=== PATIENT | female | born 1945 | race Caucasian/White ===

== ENCOUNTER 2019-12-15 14:58 | Emergency (ER) | payer OTHER, SELFPAY ==
[2019-12-15 14:59] VITALS: BP 186/92; PULSE 62; RESP 16; O2SAT 97; BMI 25.6
--- NOTE | 2019-12-15 15:01 | ED_ITS ---
Entered by Anna Andrew, acting as scribe for Sona Melchor DO HPI - Altered Mental Status General: Chief Complaint: Altered Mental Status Stated Complaint: AMS Time Seen by Provider: 12/15/19 15:00 Source: patient and EMS Mode of arrival: EMS Limitations: no limitations History of Present Illness: HPI narrative: 74 yo Female presents to ED with complaint of altered mental status. Per EMS, social work assistant went to see the patient at home today and felt that the patient had some altered mental status. Per EMS, there are about 30 hydrocodone pills that are unaccounted for. Per EMS, patient is also using Fentanyl patches. EMS reports that patient is on hospice but is unaware what the patient's hospice diagnosis is. Pt states she has no complaints at this time. MD complaint: altered mental status Onset (ago): unknown Associated symptoms: Reports no associated symptoms; Deny depression, homicidal ideation or suicidal ideation Review of Systems Const: Denies: fever, chills, change in appetite or malaise Eyes: Denies: change in vision, blurry vision, eye discharge or eye redness ENMT: Denies: throat pain, uvular edema, painful swallowing, mouth pain, dental pain, nasal congestion or facial/sinus pain Card: Denies: chest pain, irregular heart rhythm, swelling of feet/ankles, shortness of breath on exertion, shortness of breath when lying down or leg pain with exertion Resp: Denies: shortness of breath, productive cough, wheezing or coughing up blood GI: Denies: abdominal pain, nausea, vomiting, diarrhea, constipation or fecal incontinence : Denies: flank pain, difficulty urinating, painful urination, urinary frequency, urinary urgency or urinary hesitancy Musc: Denies: neck pain, back pain, extremity pain or extremity swelling Skin/Breast: Denies: rash, itching, redness, yellow skin or dry skin Neuro: Denies: headache, numbness in extremities, weakness in extremities, changes in sensation, lack of coordination or difficulty walking Psych: Denies: anxiety, depression, mood swings, panic attacks, sleeping less, suicidal ideation or homicidal ideation Endo: Denies: excessive urination, excessive thirst or tired all the time Checo/Lymph: Denies: easy bruising, petechiae or enlarged lymph nodes All/Imm: Denies: hives, throat swelling, facial swelling, acute wheezing or seasonal allergies PFSH ED PFSH: Statuses (acute, chronic, etc) shown below reflect problem list status as previously entered and may not be historically accurate Medical History (Updated 12/15/19 @ 18:11 by Sona Melchor DO) Angina pectoris (Acute) CHF (congestive heart failure) (Acute) COPD (chronic obstructive pulmonary disease) (Acute) Dementia (Acute) Diabetes (Acute) HTN (hypertension) (Acute) Hypoglycemia (Acute) Hyponatremia (Acute) UTI (urinary tract infection) (Acute) Social History Smoking and tobacco status: former smoker Physical Exam Const: COMMON NORMALS: no apparent distress, oriented x3, no limitations, healthy appearing, alert and well nourished GENERAL APPEARANCE: cooperative, comfortable, well kempt and well developed ORIENTATION/CONSCIOUSNESS: Yes awake, Yes oriented to person, Yes oriented to place and Yes oriented to time HENMT: COMMON NORMALS: normocephalic, head/scalp atraumatic, hearing grossly normal bilaterally, external ears normal, EAC's normal, TM's normal bilaterally, external nose normal, nasal mucous membranes and turbinates normal, moist oral mucous membranes, oropharynx normal, dentition normal and gingiva normal HEAD & SCALP: normal to inspection, normocephalic and atraumatic FACE & SINUS: normal facial exam NOSE: external nose normal and nasal mucous membranes and turbinates normal EXTERNAL EAR: Yes external ears normal EXTERNAL AUDITORY CANAL: EAC's normal TYMPANIC MEMBRANE: TM's normal bilaterally MOUTH: oral and palatal mucosa normal, lip normal and tongue normal THROAT: no uvular edema Eye: COMMON NORMALS: PERRL, EOMs intact bilaterally, conjunctivae normal, no scleral icterus and normal visual prater by confrontation GENERAL EYE: normal appearance of both eyes and normal light reflex VISUAL ACUITY: Yes acuity normal ALIGNMENT: Yes alignment normal PERIORBITAL: periorbital findings normal EYELID: eyelids normal CONJUNCTIVA: Yes conjunctivae normal SCLERA: sclerae normal PUPIL: Yes PERRL and Yes accommodation reflex normal DIRECT OPHTHALMOSCOPY: Yes normal light reflex Neck/C-Spine: COMMON NORMALS: full ROM, no lymphadenopathy, supple, no meningeal signs and no JVD GENERAL: Yes normal visual inspection CAROTIDS: Yes normal carotid upstroke CERVICAL SPINE: Yes cervical ROM normal Lymph: LYMPHATIC: no lymphadenopathy noted Chest: COMMONS NORMALS: inspection of chest normal CHEST: Yes symmetrical chest wall rise Resp: COMMON NORMALS: normal respiratory effort, no retractions, no use of accessory muscles and clear to auscultation bilaterally EFFORT & INSPECTION: Yes able to speak in complete sentences and Yes symmetric chest movement AUSCULTATION: clear to auscultation bilaterally Cardio: COMMON NORMALS: no JVD, regular rate, regular rhythm, S1 normal heart sound, S2 normal heart sound, no murmurs and peripheral pulses 2+ throughout RATE: regular rate RHYTHM: regular rhythm HEART SOUNDS: S1 normal and S2 normal PERIPHERAL PULSES: pulses 2+ throughout GI: COMMON NORMALS: normal to inspection, nondistended, normoactive bowel sounds and non-tender : COMMON NORMALS: Yes no CVA tenderness BLADDER/KIDNEY EXAM: Yes no CVA tenderness Back/Pelvis: COMMON NORMALS: no CVA tenderness, thoracic and lumbar spine normal to inspection, no thoracic nor lumbar tenderness and thoraco-lumbar ROM normal Extremity: COMMON NORMALS: normal to inspection, full ROM, normal capillary refill, no calf tenderness and no pedal edema Neuro: COMMON NORMALS: oriented x3, CN's II-XII intact bilaterally, moves all extremities, no focal motor deficits, no sensory deficits noted and gait normal SENSORIUM/ORIENTATION: Yes alert, Yes oriented to person, Yes oriented to place and Yes oriented to time MENINGEAL SIGNS: Yes no meningeal signs SPEECH: speech normal GAIT: Yes normal gait MOTOR EXAM: strength 5/5 throughout, no pronator drift and no tremor noted Psych: COMMON NORMALS: mental status grossly normal, thought process normal, cooperative, affect normal, speech normal and activity/motor behavior normal APPEARANCE: Yes well kempt SPEECH: Yes normal speech THOUGHT PROCESS: normal thought process THOUGHT CONTENT: Yes normal thought content INSIGHT: insight good Skin: COMMON NORMALS: no rashes or lesions noted, no wounds, skin turgor normal and no jaundice GENERAL SKIN EXAM: no rashes or lesions noted and turgor normal Course ED course: Patient resting comfortably in the ER without complaint at baseline. Answers all questions appropriately. No evidence of electrolyte abnormality, uti or anemia, no metabolic condition or infection identified. Will dc back home. Vital Signs: Vital signs: Vital Signs Pulse Rate 62 12/15/19 14:59 Respiratory Rate 16 12/15/19 14:59 Blood Pressure 186/92 12/15/19 14:59 Pulse Oximetry 97 02/07/20 14:59 MDM - Altered Mental Status Lab Data: Labs: Lab Results 12/15/19 12/15/19 12/15/19 Range/Units 14:30 14:30 14:30 WBC 9.4 (4.0-10.0) 10^3/ uL RBC 5.22 (4.1-5.3) 10^6/u L Hgb 14.7 (11.5-15.3) g/dL Hct 44.3 (37.0-47.0) % MCV 84.9 (81-99) fL MCH 28.2 (28.0-34.0) pg MCHC 33.2 (30.0-36.0) g/dL RDW 13.7 (12.1-15.1) % Plt Count 328 (130-400) 10^3/c mm MPV 10.4 (7.4-10.4) fL Neut % (Auto) 55.1 % Lymph % (Auto) 36.5 % Bullitt % (Auto) 5.6 % Eos % (Auto) 1.8 % Baso % (Auto) 0.5 % Neut # (Auto) 5.2 (1.8-7.7) 10^3/u L Lymph # (Auto) 3.4 (0.8-4.8) 10^3/u L Bullitt # (Auto) 0.5 (0.2-0.9) 10^3/u L Eos # (Auto) 0.2 (0.0-0.8) 10^3/u L Baso # (Auto) 0.1 (0.0-0.1) 10^3/u L Nucleated RBC % (a uto) 0 % Nucleated RBCs # 0.0 /100WBC PT 13.20 (10.5-13.3) SECO NDS INR 0.97 (0.8-1.2) Sodium 138 (136-145) mmol/L Potassium 3.6 (3.5-5.1) mmol/L Chloride 97 L (98-107) mmol/L Carbon Dioxide 30 H (22-29) mmol/L Anion Gap 14.6 (5-19) BUN 9 (8-23) mg/dL Creatinine 0.9 (0.5-0.9) mg/dL Glucose 99 (65-115) mg/dL Calcium 10.0 (8.5-10.5) mg/dL Total Bilirubin 0.6 (0.15-1.2) mg/dL AST 18 (0-32) U/L ALT < 5 (0-33) U/L Alkaline Phosphata se 77 (35-105) IU/L Total Protein 7.9 (6.6-8.7) g/dL Albumin 4.2 (3.5-5.2) g/dL Globulin 3.7 (1.3-4.6) g/dL Urine Color (Yellow) Urine Appearance (CLEAR) Urine pH (5-7) Ur Specific Gravit y (1.005-1.030) Urine Protein (Negative) Urine Glucose (UA) (Normal) Urine Ketones (Negative) Urine Occult Blood (Negative) Urine Nitrate (Negative) Urine Bilirubin (NEGATIVE) Urine Urobilinogen (Negative) mg/dL Ur Leukocyte Keeley ase (Negative) Acetaminophen < 5.0 L (10-30) ug/mL Ethyl Alcohol < 10 (0-10) mg/dL 12/15/19 Range/Units 17:33 WBC (4.0-10.0) 10^3/ uL RBC (4.1-5.3) 10^6/u L Hgb (11.5-15.3) g/dL Hct (37.0-47.0) % MCV (81-99) fL MCH (28.0-34.0) pg MCHC (30.0-36.0) g/dL RDW (12.1-15.1) % Plt Count (130-400) 10^3/c mm MPV (7.4-10.4) fL Neut % (Auto) % Lymph % (Auto) % Bullitt % (Auto) % Eos % (Auto) % Baso % (Auto) % Neut # (Auto) (1.8-7.7) 10^3/u L Lymph # (Auto) (0.8-4.8) 10^3/u L Bullitt # (Auto) (0.2-0.9) 10^3/u L Eos # (Auto) (0.0-0.8) 10^3/u L Baso # (Auto) (0.0-0.1) 10^3/u L Nucleated RBC % (a uto) % Nucleated RBCs # /100WBC PT (10.5-13.3) SECO NDS INR (0.8-1.2) Sodium (136-145) mmol/L Potassium (3.5-5.1) mmol/L Chloride (98-107) mmol/L Carbon Dioxide (22-29) mmol/L Anion Gap (5-19) BUN (8-23) mg/dL Creatinine (0.5-0.9) mg/dL Glucose (65-115) mg/dL Calcium (8.5-10.5) mg/dL Total Bilirubin (0.15-1.2) mg/dL AST (0-32) U/L ALT (0-33) U/L Alkaline Phosphata se (35-105) IU/L Total Protein (6.6-8.7) g/dL Albumin (3.5-5.2) g/dL Globulin (1.3-4.6) g/dL Urine Color Yellow (Yellow) Urine Appearance Clear (CLEAR) Urine pH 5 (5-7) Ur Specific Gravit y 1.020 (1.005-1.030) Urine Protein Neg (Negative) Urine Glucose (UA) Norm (Normal) Urine Ketones Negative (Negative) Urine Occult Blood Neg (Negative) Urine Nitrate Negative (Negative) Urine Bilirubin Neg (NEGATIVE) Urine Urobilinogen Norm (Negative) mg/dL Ur Leukocyte Keeley ase Negative (Negative) Acetaminophen (10-30) ug/mL Ethyl Alcohol (0-10) mg/dL Discharge Plan Discharge Patient Disposition: Home, Self-Care Clinical Impression: Normal exam Dementia Qualifiers: Dementia type: unspecified type Dementia behavioral disturbance: without behavioral disturbance Qualified Code(s): F03.90 - Unspecified dementia without behavioral disturbance Condition: Stable Discharge Orders: Discharge Order (Routine); Ordered 12/15/19 Ordered By: Sona Melchor Referrals: Sharan Diaz MD [Primary Care Provider] - Discharge Diet: Usual diet Discharge Activity: Resume usual activity Patient Instructions: Fall Prevention for Older Adults (ED) Coding Level of Care Code ED Staff Field Engineer for [facility] Fwd Exam Problem Focused The documentation recorded by the Lorrie barreto Carmen, accurately reflects the service I personally performed and the decisions made by Ruiz padilla Amanda, DO Feb 07, 2020 14:58
--- NOTE | 2019-12-15 15:07 | ECG_ITS ---
Measurements Intervals [place] Rate: 58 P: 85 WV: 187 QRS: 56 QRSD: 83 T: 91 QT: 426 QTc: 419 SINUS BRADYCARDIA WITH OCCASIONAL SUPRAVENTRICULAR PREMATURE COMPLEXES NONSPECIFIC T-WAVE ABNORMALITY Compared to ECG 08/20/2018 15:10:17 T-wave abnormality now present Electronically Signed On 12-15-2019 22:16:56 DIRECTOR IMMUNOLOGY by Mateo Prescott M.D. [email or web address]
[2019-12-15 15:23] LABS: Basophils # 0.1 10^3/uL (0.0-0.1); Basophils % 0.5 %; Eosinophils # 0.2 10^3/uL (0.0-0.8); Eosinophils % 1.8 %; Hematocrit 44.3 % (37.0-47.0); Hemoglobin 14.7 g/dL (11.5-15.3); Lymphocytes # 3.4 10^3/uL (0.8-4.8); Lymphocytes % 36.5 %; Mean Corpuscular HGB Conc 33.2 g/dL (30.0-36.0); Mean Corpuscular Hemoglobin 28.2 pg (28.0-34.0); Mean Corpuscular Volume 84.9 fL (81-99); Mean Platelet Volume 10.4 fL (7.4-10.4); Monocytes # 0.5 10^3/uL (0.2-0.9); Monocytes % 5.6 %; Neutrophils # 5.2 10^3/uL (1.8-7.7); Neutrophils % 55.1 %; Nucleated Red Blood Cells % 0 %; Platelet Count 328 10^3/cmm (130-400); Red Blood Count 5.22 10^6/uL (4.1-5.3); Red Cell Distribution Width 13.7 % (12.1-15.1); White Blood Count 9.4 10^3/uL (4.0-10.0)
[2019-12-15 15:35] LABS: INR 0.97 (0.8-1.2)
[2019-12-15 15:39] LABS: Alanine Aminotransferase < 5 U/L (0-33); Albumin Level 4.2 g/dL (3.5-5.2); Alkaline Phosphatase 77 IU/L (35-105); Anion Gap 14.6 (5-19); Aspartate Amino Transferase 18 U/L (0-32); Blood Urea Nitrogen 9 mg/dL (8-23); Carbon Dioxide 30 mmol/L (22-29); Chloride 97 mmol/L (98-107); Globulin 3.7 g/dL (1.3-4.6); Glucose 99 mg/dL (65-115); Potassium 3.6 mmol/L (3.5-5.1); Sodium 138 mmol/L (136-145); Total Bilirubin 0.6 mg/dL (0.15-1.2); Total Protein 7.9 g/dL (6.6-8.7)
[2019-12-15 15:51] LABS: Acetaminophen < 5.0 ug/mL (10-30); Alcohol Level < 10 mg/dL (0-10)
[2019-12-15 17:57] LABS: Add Urine Microscopic? NO
[2019-12-15 18:05] LABS: Bilirubin Urine Neg (NEGATIVE); Blood Urine Neg (Negative); Glucose Urine UA Norm (Normal); Ketones Urine Negative (Negative); Leukocyte Esterase Urine Negative (Negative); Nitrate Urine Negative (Negative); Protein Urine Neg (Negative); Urine Appearance Clear (CLEAR); Urine Color Yellow (Yellow); Urobilinogen Urine Norm (Negative); pH Urine 5 (5-7)
[2019-12-15 18:25] LABS: Amphetamines Screen Urine Negative (Negative); Barbiturates Screen Urine Negative (Negative); Benzodiazepines Screen Urine Negative (Negative); Cocaine Screen Urine Negative (Negative); Opiate Screen Urine Negative (Negative); PCP Screen Urine Negative (Negative); THC Screen Urine Negative (Negative)
[2019-12-15 18:31] VITALS: BP 151/88; PULSE 68; RESP 18; O2SAT 97
== END 2019-12-15 18:37 | disposition home or self-care (01) ==
PROVIDERS: Emergency Provider Emergency Medicine; Family Provider Family Medicine; PCP Family Medicine
DX: F03.90 Unspecified dementia, unspecified severity, without behavioral disturbance, psychotic disturbance, mood disturbance, and anxiety (principal); I11.0 Hypertensive heart disease with heart failure; I50.9 Heart failure, unspecified; J44.9 Chronic obstructive pulmonary disease, unspecified; E11.9 Type 2 diabetes mellitus without complications; Z87.891 Personal history of nicotine dependence
CPT/HCPCS: 80053; 80307; 81003; 85025; 85610; 93005; 99283; 99284

== ENCOUNTER 2020-01-05 13:19 | Emergency (ER) | payer MEDICARE, OTHER, SELFPAY ==
[2020-01-05] VITALS (10 sets, daily range): BP systolic 106–184; BP diastolic 68–93; PULSE 64–73; RESP 16–18; TEMP 36.6–36.7; O2SAT 92–96; BMI 22.4
--- NOTE | 2020-01-05 13:33 | ED_ITS ---
Entered by Sadaf Barron, acting as scribe for Mitchell Avila DO HPI - Weakness General: Chief complaint: General Medical Stated complaint: GENERALIZED WEAKNESS Time Seen by Provider: 01/05/20 13:41 Source: patient, family and EMS Mode of arrival: EMS Limitations: no limitations History of Present Illness: HPI Narrative: 74 yo female presents with ge neralized weakness. per sister the pt was locked in a house with random people and the police had to break in to get to the pt. per sister the pt has history of cancer and has not been eating or drinking. when sister got in the house there was no food, states she is unable to care for the pt and would like retirement placement. denies any other symptoms at this time. Patient is not oriented to time or place she does recognize her sister at the bedside otherwise she is unable to give significant history. History reviewed from old records she is previously had several times where she came in excessively weak her unable to care for self and and retirement placement recommended. She was diagnosed with a spiculated lung mass in the right lung several years ago but has not sought any treatment and is currently on hospice MD Complaint: generalized weakness and difficulty walking Onset (ago): month(s) Duration: progressively worsening Location: generalized Migration: none Severity: moderate Relieving factors: none Exacerbating factors: none Associated symptoms: Reports no associated symptoms; Denies chest pain, chills, dark stools, dysuria, fever(s), nausea or vomiting Review of Systems Const: Denies: fever, chills, body aches, change in appetite, fatigue or malaise ENMT: Denies: throat pain, ear pain, nasal discharge or nasal congestion Card: Denies: chest pain, edema, shortness of breath on exertion or shortness of breath when lying down Resp: Denies: shortness of breath, productive cough or non-productive cough GI: Denies: abdominal pain, nausea, vomiting, vomiting blood, coffee grounds in vomit, diarrhea, constipation, bloating, blood in stool or black tarry stool : Denies: flank pain, difficulty urinating, painful urination, urinary frequency or urinary urgency Skin/Breast: Denies: rash or itching All/Imm: Denies: acute wheezing PFSH ED PFSH: Medical History Angina pectoris CHF (congestive heart failure) COPD (chronic obstructive pulmonary disease) Dementia Diabetes HTN (hypertension) Hypoglycemia Hyponatremia UTI (urinary tract infection) Social History Smoking and tobacco status: current every day smoker Physical Exam Const: COMMON NORMALS: average body habitus GENERAL APPEARANCE: cooperative, comfortable, well kempt and well developed NUTRITIONAL APPEARANCE: obese ORIENTATION/CONSCIOUSNESS: Yes awake and Yes oriented to person HENMT: COMMON NORMALS: normocephalic, head/scalp atraumatic, EAC's normal, TM's normal bilaterally, external nose normal, moist oral mucous membranes and oropharynx normal HEAD & SCALP: normocephalic and atraumatic NOSE: external nose normal EXTERNAL AUDITORY CANAL: EAC's normal TYMPANIC MEMBRANE: TM's normal bilaterally MOUTH: oral and palatal mucosa normal, lip normal and tongue normal THROAT: posterior oropharynx normal and tonsils normal Eye: COMMON NORMALS: PERRL, EOMs intact bilaterally, conjunctivae normal and no scleral icterus CONJUNCTIVA: Yes conjunctivae normal PUPIL: Yes PERRL Neck/C-Spine: COMMON NORMALS: full ROM, no lymphadenopathy, supple, no meningeal signs and thyroid normal THYROID: thyroid normal and asymmetrical Lymph: LYMPHATIC: no lymphadenopathy noted Resp: COMMON NORMALS: normal respiratory effort, no retractions, no use of accessory muscles and clear to auscultation bilaterally AUSCULTATION: clear to auscultation bilaterally Cardio: COMMON NORMALS: regular rate and regular rhythm RATE: regular rate RHYTHM: regular rhythm HEART SOUNDS: no murmurs GI: COMMON NORMALS: normal to inspection, nondistended, normoactive bowel sounds, soft to palpation and no hepatosplenomegaly PALPATION: Yes soft and Yes no hepatosplenomegaly : COMMON NORMALS: Yes no CVA tenderness BLADDER/KIDNEY EXAM: Yes no CVA tenderness Back/Pelvis: COMMON NORMALS: no CVA tenderness LUMBAR SPINE/LOWER BACK: Yes normal to inspection Neuro: SENSORIUM/ORIENTATION: Yes oriented to person MENINGEAL SIGNS: Yes no meningeal signs Psych: APPEARANCE: Yes well kempt Skin: COMMON NORMALS: no rashes or lesions noted and skin turgor normal GENERAL SKIN EXAM: no rashes or lesions noted and turgor normal Course ED course: She has no ongoing medical issues at this point I would not recommend necessarily hospitalizing her. She certainly does have generalized weakness and some dementia and probably worsened by her underlying diagnosis of cancer which has not been treated. I concur with the sister that she would be better served at a retirement. Reviewed old records, has had some the same difficulties in the past with the patient in terms of poor memory not being able to manage fully manage herself. Unfortunately the patient has not of her right mind at this point to sign for power of insurance attorney to her sister who is present. She is not really aware of time or place although she does understand that it is her sister with her here today. Patient is agreeable to going to the retirement we will get her placed in the retirement encouraged the family member to pursue power of insurance attorney as a separate issue. Vital Signs: Vital signs: Vital Signs Temperature 97.8 F 01/05/20 21:19 Pulse Rate 72 01/05/20 21:19 Respiratory Rate 18 01/05/20 21:19 Blood Pressure 106/68 01/05/20 21:19 Pulse Oximetry 94 01/05/20 21:19 MDM - Weakness Lab Data: Labs: Lab Results 01/05/20 01/05/20 01/05/20 Range/Units 14:00 14:03 14:03 WBC 13.4 H (4.0-10.0) 10^3/ uL RBC 5.12 (4.1-5.3) 10^6/u L Hgb 14.6 (11.5-15.3) g/dL Hct 43.9 (37.0-47.0) % MCV 85.7 (81-99) fL MCH 28.5 (28.0-34.0) pg MCHC 33.3 (30.0-36.0) g/dL RDW 13.5 (12.1-15.1) % Plt Count 253 (130-400) 10^3/c mm MPV 10.1 (7.4-10.4) fL Neut % (Auto) 73.6 % Lymph % (Auto) 19.4 % Henderson % (Auto) 6.3 % Eos % (Auto) 0.3 % Baso % (Auto) 0.1 % Neut # (Auto) 9.9 H (1.8-7.7) 10^3/u L Lymph # (Auto) 2.6 (0.8-4.8) 10^3/u L Henderson # (Auto) 0.9 (0.2-0.9) 10^3/u L Eos # (Auto) 0.0 (0.0-0.8) 10^3/u L Baso # (Auto) 0.0 (0.0-0.1) 10^3/u L Nucleated RBC % (a uto) 0 % Nucleated RBCs # 0.0 /100WBC Specimen Type Arterial Sample Site Radial, right ABG pH 7.48 H (7.35-7.45) ABG pCO2 34.7 L (35-45) mmHg ABG pO2 52.6 L (80.0-100.0) mmH g ABG HCO3 26.0 (22-26) mmol/L ABG O2 Saturation 90.1 ABG Base Excess 2.8 H (-2.0-2.0) mmol/ L Silver Test Pos A-a O2 Gradient 52.9 H (5-10) mmHg Hematocrit 44.9 (37-47) % Hgb O2 Saturation 88.9 L (95-100) % Carboxyhemoglobin 1.1 (0.4-20.1) %THgb Methemoglobin 0.4 (0.4-1.5) % Total Hemoglobin 14.6 (12-16) g/dL Sodium 138.0 135 L (131-143) mmol/L Potassium 3.2 L 3.4 L (3.5-5.0) mmol/L Glucose 129.0 H 154 H (70-115) mg/dL Ionized Calcium 1.2 (1.1-1.4) mmol/L O2 Delivery Device Room air FiO2 21.0 % Roving Frame Tender ID amh Chloride 94 L (98-107) mmol/L Carbon Dioxide 26 (22-29) mmol/L Anion Gap 18.4 (5-19) BUN 10 (8-23) mg/dL Creatinine 1.1 H (0.5-0.9) mg/dL POC Glucose (70-110) mg/dL Calcium 10.0 (8.5-10.5) mg/dL Total Bilirubin 0.5 (0.15-1.2) mg/dL AST 16 (0-32) U/L ALT 6 (0-33) U/L Alkaline Phosphata se 68 (35-105) IU/L Creatine Kinase 72 (26-192) U/L Total Protein 7.6 (6.6-8.7) g/dL Albumin 4.2 (3.5-5.2) g/dL Globulin 3.4 (1.3-4.6) g/dL Lipase 14 (13-60) U/L Urine Color (Yellow) Urine Appearance (CLEAR) Urine pH (5-7) Ur Specific Gravit y (1.005-1.030) Urine Protein (Negative) Urine Glucose (UA) (Normal) Urine Ketones (Negative) Urine Blood (Negative) Urine Nitrate (Negative) Urine Bilirubin (NEGATIVE) Urine Urobilinogen (Negative) mg/dL Ur Leukocyte Keeley ase (Negative) 01/05/20 01/05/20 Range/Units 14:03 15:36 WBC (4.0-10.0) 10^3/ uL RBC (4.1-5.3) 10^6/u L Hgb (11.5-15.3) g/dL Hct (37.0-47.0) % MCV (81-99) fL MCH (28.0-34.0) pg MCHC (30.0-36.0) g/dL RDW (12.1-15.1) % Plt Count (130-400) 10^3/c mm MPV (7.4-10.4) fL Neut % (Auto) % Lymph % (Auto) % Henderson % (Auto) % Eos % (Auto) % Baso % (Auto) % Neut # (Auto) (1.8-7.7) 10^3/u L Lymph # (Auto) (0.8-4.8) 10^3/u L Henderson # (Auto) (0.2-0.9) 10^3/u L Eos # (Auto) (0.0-0.8) 10^3/u L Baso # (Auto) (0.0-0.1) 10^3/u L Nucleated RBC % (a uto) % Nucleated RBCs # /100WBC Specimen Type Sample Site ABG pH (7.35-7.45) ABG pCO2 (35-45) mmHg ABG pO2 (80.0-100.0) mmH g ABG HCO3 (22-26) mmol/L ABG O2 Saturation ABG Base Excess (-2.0-2.0) mmol/ L Silver Test A-a O2 Gradient (5-10) mmHg Hematocrit (37-47) % Hgb O2 Saturation (95-100) % Carboxyhemoglobin (0.4-20.1) %THgb Methemoglobin (0.4-1.5) % Total Hemoglobin (12-16) g/dL Sodium (131-143) mmol/L Potassium (3.5-5.0) mmol/L Glucose (70-115) mg/dL Ionized Calcium (1.1-1.4) mmol/L O2 Delivery Device FiO2 % Roving Frame Tender ID Chloride (98-107) mmol/L Carbon Dioxide (22-29) mmol/L Anion Gap (5-19) BUN (8-23) mg/dL Creatinine (0.5-0.9) mg/dL POC Glucose 144 (70-110) mg/dL Calcium (8.5-10.5) mg/dL Total Bilirubin (0.15-1.2) mg/dL AST (0-32) U/L ALT (0-33) U/L Alkaline Phosphata se (35-105) IU/L Creatine Kinase (26-192) U/L Total Protein (6.6-8.7) g/dL Albumin (3.5-5.2) g/dL Globulin (1.3-4.6) g/dL Lipase (13-60) U/L Urine Color Dark yellow (Yellow) Urine Appearance Clear (CLEAR) Urine pH 5 (5-7) Ur Specific Gravit y 1.020 (1.005-1.030) Urine Protein Neg (Negative) Urine Glucose (UA) Norm (Normal) Urine Ketones Negative (Negative) Urine Blood Neg (Negative) Urine Nitrate Negative (Negative) Urine Bilirubin 1+ H (NEGATIVE) Urine Urobilinogen 1 H (Negative) mg/dL Ur Leukocyte Keeley ase Negative (Negative) Imaging Data^: CXR: Radiologist's impression: [address] [address] XRay Report Signed Patient: Angela Wells IUnit #: [id number] : 6Acct#:[id number] Age/Sex: 74 / FADM Date: 01/05/20 Loc: ERRoom/Bed: Attending Dr: Ordering Provider/Ordering MD: Mitchell Avila DO Date of Service: 01/05/20 Procedure(s): XR chest 1V portable [id number] Accession Number(s): [id number] Report Number: [id number] WS: [id number] Portable AP upright chest, 01/05/2020 Clinical Data: dyspnea/cough Comparison: PA and lateral chest, 08/20/2018. Findings: There is a right middle lobe mass which has been noted on prior studies and it is larger measuring 5.2 cm in greatest transverse dimension. The pulmonary vascularity is not increased. No pneumonia or pneumothorax is seen. The heart is normal. The aortic arch and descending aorta show tortuosity. XR/XR chest 1V portable [id number] Impression: 1. Enlarging right middle lobe mass. 2. Atherosclerosis. Dictated By:Elida Olmstead MD Signed By:Elida Olmstead MDSigned Date/Time:01/05/20 1428 Discharge Plan Discharge Patient Disposition: Hospice - Home Clinical Impression: Lung cancer, primary, with metastasis from lung to other site, Dementia Condition: Stable Prescriptions: No Action No Known Home Medications RF: 0 Discharge Orders: Discharge Order (Routine); Ordered 01/05/20 Ordered By: Mitchell Avila Referrals: Sharan Diaz MD [Primary Care Provider] - Activity Restrictions/Additional Instructions: Continue to follow with hospice and physician at the retirement. Interventions: ED Discharge Assessment Last Done: 01/05/20 21:19 Discharge Date/Time: 01/05/20 21:20 Coding Level of Care Code ED Caramel Maker for Chg Fwd Exam Comprehensive The documentation recorded by the Anderson barreto Bridget Annette, accurately reflects the service I personally performed and the decisions made by Margarita padilla Curtis L, DO Jan 05, 2020 13:19
--- NOTE | 2020-01-05 13:46 | PC.NURSE ---
Per pt sister, pt lives in her home with several others that the sister and the patient do not know. When asking patient, pt states they are friends . Pt is unable to name the people who live with her. Pt states she is able to get herself to and from the commode without assistance, but is incontinent on herself at times. Pt states there are people at her home to help clean her up when they are there . Pt sister states she was contacted today by a concerned neighbor that requested she go check on pt. Pt sister called law enforcement to assist her checking on her sister. Pt sister states that they had to break into the home and that it looked like a hoarder's house. Per pt sister, pt is on hospice for lung and brain cancer, but does not know anything else about her care. Pt states she is on hospice but does not know what for. Per pt sister, there was no food in the home other than rotten strawberries and alcoholic beverages. Pt reports eating 3 meals a day every day that is beans, potatoes and rotten tomatoes .
--- NOTE | 2020-01-05 13:52 | XR_ITS ---
WS: [id number] Portable AP upright chest, 01/05/2020 Clinical Data: dyspnea/cough Comparison: PA and lateral chest, 08/20/2018. Findings: There is a right middle lobe mass which has been noted on prior studies and it is larger me asuring 5.2 cm in greatest transverse dimension. The pulmonary vascularity is not increased. No pneum onia or pneumothorax is seen. The heart is normal. The aortic arch and descending aorta show tortuosi ty. XR/XR chest 1V portable [id number] Impression: 1. Enlarging right middle lobe mass. 2. Atherosclerosis.
--- NOTE | 2020-01-05 13:52 | ECG_ITS ---
Measurements Intervals [place] Rate: 88 P: 80 WA: 172 QRS: 33 QRSD: 80 T: 36 QT: 379 QTc: 461 SINUS RHYTHM WITH FREQUENT SUPRAVENTRICULAR PREMATURE COMPLEXES NONSPECIFIC T-WAVE ABNORMALITY Compared to ECG 12/15/2019 15:25:18 Sinus bradycardia no longer present T-wave abnormality still present Electronically Signed On 01-06-2020 7:50:56 COORDINATOR OF ONLINE PROGRAMS by Laisha Whaley M.D. [email or web address]
[2020-01-05 14:08] LABS: Glucose Point of Care 144 mg/dL (70-110)
[2020-01-05 14:12] LABS: ABG PCO2 34.7 mmHg (35-45); ABG PH Result 7.48 (7.35-7.45); Alveolar-Arterial Oxygen Gradi 52.9 mmHg (5-10); Arterial Blood Gas Hematocrit 44.9 % (37-47); Base Excess ABG 2.8 mmol/L (-2.0-2.0); Blood Gas Allen Test Pos; Blood Gas Operator Identificat amh; Blood Gas Sample Site Radial, right; Blood Gas Sample Type Arterial; Carboxyhemoglobin 1.1 %THgb (0.4-20.1); HGB O2 Sat 88.9 % (95-100); Ionized Calcium Level - ABG 1.2 mmol/L (1.1-1.4); Methemoglobin 0.4 % (0.4-1.5); Oxygen Device ROOM AIR; Oxygen Saturation ABG 90.1; PO2 ABG 52.6 mmHg (80.0-100.0); Potassium Level - ABG 3.2 mmol/L (3.5-5.0); Total Hemoglobin 14.6 g/dL (12-16)
[2020-01-05 14:20] LABS: Basophils % 0.1 %; Eosinophils % 0.3 %; Hematocrit 43.9 % (37.0-47.0); Hemoglobin 14.6 g/dL (11.5-15.3); Lymphocytes # 2.6 10^3/uL (0.8-4.8); Lymphocytes % 19.4 %; Mean Corpuscular HGB Conc 33.3 g/dL (30.0-36.0); Mean Corpuscular Hemoglobin 28.5 pg (28.0-34.0); Mean Corpuscular Volume 85.7 fL (81-99); Mean Platelet Volume 10.1 fL (7.4-10.4); Monocytes # 0.9 10^3/uL (0.2-0.9); Monocytes % 6.3 %; Neutrophils # 9.9 10^3/uL (1.8-7.7); Neutrophils % 73.6 %; Nucleated Red Blood Cells % 0 %; Platelet Count 253 10^3/cmm (130-400); Red Blood Count 5.12 10^6/uL (4.1-5.3); Red Cell Distribution Width 13.5 % (12.1-15.1); White Blood Count 13.4 10^3/uL (4.0-10.0)
[2020-01-05 14:45] LABS: Alanine Aminotransferase 6 U/L (0-33); Albumin Level 4.2 g/dL (3.5-5.2); Alkaline Phosphatase 68 IU/L (35-105); Anion Gap 18.4 (5-19); Aspartate Amino Transferase 16 U/L (0-32); Blood Urea Nitrogen 10 mg/dL (8-23); Carbon Dioxide 26 mmol/L (22-29); Chloride 94 mmol/L (98-107); Creatine Phosphokinase 72 U/L (26-192); Globulin 3.4 g/dL (1.3-4.6); Glucose 154 mg/dL (65-115); Lipase 14 U/L (13-60); Potassium 3.4 mmol/L (3.5-5.1); Sodium 135 mmol/L (136-145); Total Bilirubin 0.5 mg/dL (0.15-1.2); Total Protein 7.6 g/dL (6.6-8.7)
--- NOTE | 2020-01-05 15:06 | PC.PHAR ---
talked to angel from [facility] she states the pt is no longer taking any medications.she states they could never get a correct count on her narcs and that the pt was never wore her fentanyl patches. so they have no meds that the pt takes
[2020-01-05 15:49] LABS: Add Urine Microscopic? NO
[2020-01-05 16:32] LABS: Bilirubin Urine 1+ (NEGATIVE); Blood Urine Neg (Negative); Glucose Urine UA Norm (Normal); Ketones Urine Negative (Negative); Leukocyte Esterase Urine Negative (Negative); Nitrate Urine Negative (Negative); Protein Urine Neg (Negative); Urine Appearance Clear (CLEAR); Urine Color Dark Yellow (Yellow); Urobilinogen Urine 1 mg/dL (Negative); pH Urine 5 (5-7)
--- NOTE | 2020-01-05 17:33 | DCPLANNER ---
Addendum entered by Tory Caputo 01/08/20 09:15: Livia from [facility] called director of casework services to see what was done with patient. manager of corporate explained that since patient did not have medicaid at this time that the residential would not accept patient at this time. Livia stated that she would continue to work on this with the patient, hospice and the residential. Original Note: manager of corporate was asked to help patient and family to find placement in a residential. manager of corporate had patient fill out the Patient Choice letter stating that she would like to go to [facility] for first choice, then [facility], then [facility]. manager of corporate called [facility], they did not have any beds at this time, neither did [facility]. manager of corporate faxed everything to [facility] for review, patient does not have medicaid, so the facility was not able to accept patient at this time. Facility asked if patient would be able to private pay, patient can not afford to pay for a residential. manager of corporate spoke with Cristina with [facility], patient is on their services at this time, she suggested that director of casework services try to get [facility] to accept patient as a hospice respite for 5 days. Fernando said no to this as well. manager of corporate called [facility]osp[facility] and informed Cristina that [facility] denied patient as hospice respite. manager of corporate informed patients sister and patient that there was not a residential at this time that would accept patient. manager of corporate also informed ED physician, and nurse that nursing homes that were tried all stated that they could not accept patient at this time.
--- NOTE | 2020-01-05 21:20 | PC.NURSE ---
Patient dc'd back to long term in stable condition via wheelchair via transport on o2 2lnc.
== END 2020-01-05 21:20 | disposition hospice, home (50) ==
PROVIDERS: Emergency Provider Family Medicine; Family Provider Family Medicine; PCP Family Medicine
DX: F03.90 Unspecified dementia, unspecified severity, without behavioral disturbance, psychotic disturbance, mood disturbance, and anxiety (principal); C34.2 Malignant neoplasm of middle lobe, bronchus or lung; C79.9 Secondary malignant neoplasm of unspecified site; I11.0 Hypertensive heart disease with heart failure; I50.9 Heart failure, unspecified; J44.9 Chronic obstructive pulmonary disease, unspecified; E11.9 Type 2 diabetes mellitus without complications; E66.9 Obesity, unspecified; Z68.22 Body mass index [BMI] 22.0-22.9, adult; F17.200 Nicotine dependence, unspecified, uncomplicated
CPT/HCPCS: 36415; 36416; 36600; 71045; 80051; 80053; 81003; 82550; 82810; 82962; 83690; 83986; 85025; 93005; 99283

== ENCOUNTER 2020-10-11 09:32 | Outpatient (CLI) | payer OTHER, MEDICARE, MEDICAID, SELFPAY ==
--- NOTE | 2020-10-11 10:25 | CT_ITS ---
WS: [id number] CT scan of the chest without IV contrast, additional two-dimensional coronal and sagittal reconstruct ion was performed. 10/11/2020 Clinical Data: EVALUATION OF LUNG NODULE Comparison: CT chest, 06/03/2018. DLP: 513.[address] scans at [facility] use at least one of these dose optimization techniques: automat ed exposure control; mA and/or kV adjustment per patient size (includes targeted exams where dose is matched to clinical indication); or iterative reconstruction. Findings: There is a right middle lobe mass which measures in greatest dimension 4.97 cm. Peripheral to this ma ss there is probable partial atelectasis. No nodules are seen. The left lung is clear. There are no e ffusions. The heart size is normal with no pericardial effusion. No pneumonia or pneumothorax is present. The trachea bifurcates normally and the bronchi. There is coronary artery calcification and coronary jacob ry stents present. The thoracic aorta shows calcification in the wall. The pulmonary arterial system is normal. There is no axillary or significant mediastinal adenopathy. The thoracic spine shows osteo porosis. The T12 compression fracture is unchanged. No bony metastatic disease is seen. The upper abdomen shows no acute abnormalities. There are clips in the gallbladder fossa from a yudi cystectomy. CT/CT chest wo con [id number] Impression: 1. Probable enlargement of right middle lobe mass with peripheral atelectasis. 2. No evidence of other pulmonary nodules, liver metastases or bony metastatic disease.
== END 2020-10-11 09:33 | disposition home or self-care (01) ==
LOC: RADWPI 09:39
PROVIDERS: PCP Family Medicine; Visit Provider Family Medicine
DX: J98.11 Atelectasis (principal); R91.1 Solitary pulmonary nodule
CPT/HCPCS: 71250

== ENCOUNTER → 2021-05-21 09:36 | Outpatient (BNVA) | payer MEDICARE, MEDICAID, SELFPAY | PROVIDERS: PCP Family Medicine; Referring Provider Family Medicine; Visit Provider Orthopaedic Surgery | DX: M25.531 Pain in right wrist (principal); S63.501A Unspecified sprain of right wrist, initial encounter; W19.XXXA Unspecified fall, initial encounter; Z46.89 Encounter for fitting and adjustment of other specified devices; S63.501D Unspecified sprain of right wrist, subsequent encounter; X58.XXXD Exposure to other specified factors, subsequent encounter | CPT/HCPCS: 73110; L3908 ==

== ENCOUNTER 2021-05-21 14:33 | Outpatient (CLI) | payer MEDICARE, MEDICAID, SELFPAY | END 2021-05-21 14:34 | disposition home or self-care (01) | LOC: SPT 14:34 | PROVIDERS: PCP Family Medicine; Visit Provider Orthopaedic Surgery | DX: Z46.89 Encounter for fitting and adjustment of other specified devices (principal); S63.501D Unspecified sprain of right wrist, subsequent encounter; X58.XXXD Exposure to other specified factors, subsequent encounter | CPT/HCPCS: L3908 ==

== ENCOUNTER → 2022-03-25 16:04 | Outpatient (BNVA) | payer MEDICARE, MEDICAID, SELFPAY | PROVIDERS: PCP Nurse Practitioner Family; Visit Provider Family Medicine | DX: R30.0 Dysuria (principal) | CPT/HCPCS: 81003; 87077; 87086; 87184 ==

== ENCOUNTER → 2022-07-30 10:18 | Outpatient (BNVA) | payer MEDICARE, MEDICAID, SELFPAY | PROVIDERS: PCP Nurse Practitioner Family; Visit Provider Nurse Practitioner Family | DX: I10 Essential (primary) hypertension (principal) | CPT/HCPCS: 80053 ==